=== PATIENT | female | born 1945 | race Caucasian/White ===

== ENCOUNTER 2023-01-08 09:58 | Outpatient (CLI) | payer MEDICARE | END 2023-01-08 09:59 | disposition home or self-care (01) | LOC: BICMAMMO 09:58 | PROVIDERS: ATTEND Student in an Organized Health Care Education/Training Program | DX: R92.8 Other abnormal and inconclusive findings on diagnostic imaging of breast (principal); Z86.000 Personal history of in-situ neoplasm of breast | CPT/HCPCS: 77065; G0279 ==